=== PATIENT | female | born 1950 | race Caucasian/White ===

== ENCOUNTER 2022-01-10 10:55 | Outpatient (RCR) | payer MEDICARE, SELFPAY ==
[2022-01-10 11:12] VITALS: BMI 38.9
[2022-01-10 15:22] VITALS: BMI 38.9
== END 2022-03-27 09:52 | disposition home or self-care (01) ==
LOC: ANHDMC 10:55
PROVIDERS: PCP Nurse Practitioner Family; Visit Provider Nurse Practitioner Family
DX: E11.65 Type 2 diabetes mellitus with hyperglycemia (principal); K57.92 Diverticulitis of intestine, part unspecified, without perforation or abscess without bleeding; Z71.3 Dietary counseling and surveillance
CPT/HCPCS: 97802